=== PATIENT | male | born 1935 | race Caucasian/White ===

== ENCOUNTER 2017-04-18 07:02 | Day surgery (SDC) | payer MEDICARE, OTHER ==
[~2017-04-18 07:02] MED LIST: Sodium Chloride 0.9% 1,000 ML IV SCH
[2017-04-18] MEDS ORDERED: Acetylcysteine 600 MG, Water For Injection,Sterile 57 ML ONE ×2 (08:00)
[2017-04-18] MEDS ORDERED: fentaNYL 100 MCG/2 ML SDV ONE (08:22)
[2017-04-18] MEDS ORDERED: Propofol 200 MG/20 ML SDV ONE (08:22)
[2017-04-18] MEDS ORDERED: Alum Hydrox/Mag Hydrox/Simeth 360 ML, Lidocaine 2% 60 ML PO SCH ×2 (11:00)
--- NOTE | 2017-04-19 10:48 | OR ---
DATE OF PROCEDURE: 04/18/2017 PROCEDURE: Barrx ablation of the distal esophagus. PREOPERATIVE DIAGNOSIS: Wagner's esophagus. POSTOPERATIVE DIAGNOSIS: Wagner's esophagus. COMPLICATIONS: None. BIOMETRICS CONSULTANT: None. ANESTHESIA: MAC. RISKS: Risks, benefits, alternatives, limitations including but not limited to infection, bleeding, perforation, aspiration, cardiovascular issues, and other risks were explained to the patient, but not listed here, and they wished to proceed. PROCEDURE IN DETAIL: The patient was placed in left lateral decubitus position. The EGD scope was introduced and advanced atraumatically into the duodenum itself. No abnormalities noted. The Wagner's esophagus was noted to be significant and was in multi-quadrants. Therefore, the 360 ablator device would be used. This was introduced by advancing a guidewire. The guidewire was then removed, and the device was advanced carefully over this. This was then followed by the EGD scope. Of note, Mucomyst was used prior to the introduction of the device. The top of gastric folds and top of the intestinal metaplasia was 42.5. This was then overlapped with the 360. This was then deployed by depressing the love button, waiting for the auditory tone, applying suction, depressing the blue button, and then waiting for the last tone to remove and release. The device and EGD scope were removed together. The scraper was then placed on the EGD scope, introduced, and scraping was commenced. After this, the EGD ablation was then commenced a second time, using the overlay wire and careful deployment in the same sequence as described previously. This was then removed together in unison, and the procedure was terminated. The patient tolerated the procedure well. Sage Hair MD /[id number]
== END 2017-04-18 11:57 | disposition home or self-care (01) ==
LOC: JP.SDS 07:02
PROVIDERS: ATTEND Surgery
DX: K22.70 Barrett's esophagus without dysplasia (principal); J44.9 Chronic obstructive pulmonary disease, unspecified; I25.10 Atherosclerotic heart disease of native coronary artery without angina pectoris; E11.9 Type 2 diabetes mellitus without complications; E66.9 Obesity, unspecified; Z95.2 Presence of prosthetic heart valve; Z88.8 Allergy status to other drugs, medicaments and biological substances
CPT/HCPCS: 43270; A9270; C1713; C1886; J2704; J3010; J7040